=== PATIENT | female | born 1965 | race Caucasian/White ===

== ENCOUNTER 2025-03-12 08:13 | Outpatient (CLI) | payer OTHER, SELFPAY | END 2025-03-12 08:14 | disposition home or self-care (01) | LOC: AMB 03-15 07:59 | PROVIDERS: Visit Provider Student in an Organized Health Care Education/Training Program | DX: R11.10 Vomiting, unspecified (principal); R10.9 Unspecified abdominal pain; R21 Rash and other nonspecific skin eruption | CPT/HCPCS: A0425; A0427 ==